=== PATIENT | female | born 1960 | race Caucasian/White ===

== ENCOUNTER 2022-11-15 07:04 | Inpatient (IN) | payer OTHER, SELFPAY ==
[2022-11-15] VITALS (19 sets, daily range): BP systolic 94–133; BP diastolic 50–78; PULSE 101–139; RESP 18–28; TEMP 36.8–37; O2SAT 96–100; BMI 23.1
--- NOTE | ~2022-11-15 | CT_ITS ---
Clinical Indication: Pulmonary nodule CT Scan of the Chest with Contrast: Technique: Contiguous sections were acquired throughout the chest after intravenous administration of 75 cc of Omnipaque 350. Dose reduction technique was used on this scan by utilizing automated exposu re control and iterative reconstruction technique. The dose-length product (DLP) was 363.74 mGy-cm. Findings: There is no evidence of any significant mediastinal, hilar or axillary lymphadenopathy. Mediastinal s oft tissues and vascular structures are unremarkable. There is no evidence of pleural or pericardial effusion. There is a 1.7 x 1.1 cm somewhat lobulated, nodular consolidation in the peripheral left upper lobe ( axial image 65). Right lung is clear. Images through the upper abdomen reveal markedly distended stomach. Impression: 1.7 x 1.1 cm nodular consolidation in the peripheral left upper lobe, as detailed above. Diagnostic c onsiderations include infectious process versus neoplasm. Correlate with relevant clinical symptoms. Consider short-term follow-up exam after interval therapy versus attempted tissue sampling. Reviewed, dictated and finalized at location . Impression: 1.7 x 1.1 cm nodular consolidation in the peripheral left upper lobe, as detail ed above. Diagnostic considerations include infectious process versus neoplasm. Correlate with relevant clinical symptoms. Consider short-term follow-up exam after interval therapy versus attempted tissue sampling.
--- NOTE | ~2022-11-15 | XR_ITS ---
Portable chest x-ray Comparison: None Clinical History: Shortness of breath Findings: Questionable 7 mm pulmonary nodule at the lateral left midlung. Right lung clear. Cardiom ediastinal silhouette is stable. Bones and soft tissues are unremarkable. Impression: Possible 7 mm left pulmonary nodule. CT chest recommended to confirm or exclude. Reviewed, dictated and finalized at [facility]. Impression: Possible 7 mm left pulmonary nodule. CT chest recommended to confirm or exclude .
--- NOTE | 2022-11-15 07:16 | ECG_ITS ---
Measurements Intervals [place] Rate: 123 P: 79 IN: 172 QRS: 51 QRSD: 90 T: 68 QT: 314 QTc: 451 Interpretive Statements SINUS TACHYCARDIA POSSIBLE RIGHT VENTRICULAR CONDUCTION DELAY [RSR (QR) IN V1/V2] NO PREVIOUS ECG AVAILABLE FOR COMPARISON Electronically Signed On 11-15-2022 14:25:21 CDT by Sharon Gonzalez M.D.
[2022-11-15 07:20] LABS: Glucose Point of Care > 500 mg/dl (65-105)
[2022-11-15] MEDS: ONDANSETRON INJ 4 MG/2 ML VIAL IV PUSH ×2 (07:20→23:44)
[2022-11-15] MEDS: SODIUM CHLORIDE 0.9% IV 3,000 ML 999 ML IV CONT (07:20)
--- NOTE | 2022-11-15 07:21 | ED.RECABL ---
HPI - Recheck/Abnormal Lab/Rx General Chief Complaint: Recheck/Abnormal Lab/Rx Stated Complaint: high blood sugar History of Present Illness HPI narrative: This is a 62-year-old female, with history of diabetes, brought in by EMS for nausea vomiting and high blood sugar. The patient states her medications were recently changed to Ozempic. 3 days ago, she received a flu vaccination annually thereafter developed nausea, vomiting, generalized abdominal cramping and general malaise. She states she has vomited multiple times without blood and feels dehydrated. Related Data Home Medications Medication Instructions Recorded Confirmed aspirin 81 mg tablet 81 mg PO DAILY 11/15/22 11/15/22 atorvastatin 20 mg tablet 20 mg PO HS 11/15/22 11/15/22 cholecalciferol (vitamin D3) 100 100 mcg PO DAILY 11/15/22 11/15/22 mcg (4,000 unit) tablet insulin aspart U-100 100 unit/mL See Protocol subcut BIDWM 11/15/22 11/15/22 subcutaneous solution (Novolog U-100 Insulin aspart) levothyroxine 112 mcg tablet 112 mcg PO QAM 11/15/22 11/15/22 (Synthroid) losartan 25 mg tablet 25 mg PO DAILY 11/15/22 11/15/22 metformin 1,000 mg tablet 1,000 mg PO BID 11/15/22 11/15/22 semaglutide 0.25 mg or 0.5 mg (2 0.5 mg subcut WEEKLY 11/15/22 11/15/22 mg/3 mL) subcutaneous pen injector (Ozempic) Allergies Allergy/AdvReac Type Severity Reaction Status Date / Time hydrocodone Allergy Nausea Verified 11/15/22 07:14 Sulfa (Sulfonamide Allergy Rash Verified 11/15/22 07:13 Antibiotics) Review of Systems Review of Systems: CONSTITUTIONAL: Denies fever, chills, or sweats. CARDIOVASCULAR: Denies chest pain, palpitations, or edema. RESPIRATORY: Denies cough or dyspnea. GASTROINTESTINAL: Generalized abdominal cramping, nausea and nonbloody vomiting denies diarrhea. GENITOURINARY: Denies dysuria or hematuria. SKIN: Denies rash or itching. MUSCULOSKELETAL: Denies back pain, joint pain, or myalgia. NEUROLOGIC: Lightheadedness denies headache, numbness, or weakness. PSYCHIATRIC: Denies anxiety or depression. PMFSH Past Medical History Medical History Diabetes mellitus Surgical History Surgical History No significant past surgical history Social History Social History Smoking status: Never smoker Alcohol intake: never Substance use: current Substance use type: marijuana Lack of Transportation: No Lack of Food: Never True Current Housing: I Have Housing Concerned About Future Housing: No Difficulty Paying Gas/Electric Bills: No Difficulty Paying for Meds: No Currently Unemployed: No Education: Decline to Answer Difficulty w/ Childcare or Family Care: No Spiritual care concerns: No Exam Narrative: GENERAL: Well-developed, well-nourished, appears uncomfortable HEAD: Normocephalic, atraumatic. EYES: PERRLA and EOMI. ENT: Nares clear, no rhinorrhea or epistaxis. Mucous membranes dry. Oropharynx without tonsillar hypertrophy exudate or other lesions. CHEST: Tachypneic. Clear to auscultation. No respiratory distress. No wheezes rales or rhonchi HEART: Tachycardic with regular rhythm. No murmur heard. Normal peripheral pulses. ABDOMEN: Soft, diffuse tenderness to palpation, without rebound or guarding, nondistended, normal active bowel sounds. EXTREMITIES: Normal range of motion. No edema. SKIN: Warm, dry, no rash. NEURO: Alert and oriented x3. Moving all 4 limbs purposefully. PSYCH: Normal mood and affect. Course Course Emergency Course: 07:30 - Exam is consistent with DKA. Will resuscitate with IV fluids, begin broad-spectrum antibiotics and plan for insulin drip once potassium is known. 08:04 - pH 6.88 with bicarb of 2. Potassium 4.8. Will start patient on insulin drip and begin bicarb with potassium. 09:07 - I discussed the pa
[2022-11-15 07:37] LABS: Basophils Absolute Auto 0.1 K/mm3 (0.0-0.1); Basophils Percent Auto 0.6 % (0.2-1.2); Hematocrit 49.1 % (37.0-47.0); Hemoglobin 14.6 g/dL (12.0-15.0); Immature Granulocyte Absolute 0.17 K/mm3 (0.00-0.031); Immature Granulocyte Percent A 0.7 % (0-0.5); Lymphocytes Absolute Auto 2.36 K/mm3 (0.9-3.2); Mean Corpuscular HGB Conc 29.7 g/dl (32-36); Mean Corpuscular Volume 107.7 fl (80-100); Mean Platelet Volume 10.5 fl (7.4-10.4); Monocytes Absolute Auto 1.9 K/mm3 (0.1-0.6); Monocytes Percent Auto 8.2 % (2.6-8.5); Neutrophils Percent Auto 80.5 % (45.5-73.1); Platelet Count Result 390 k/mm3 (150-375); Red Blood Count 4.56 M/mm3 (4.2-5.4); Red Cell Distribution Width 12.8 % (11.5-14.5); White Blood Count 23.6 K/mm3 (4.5-10.0)
[2022-11-15 07:47] LABS: Fractional Inspired Oxygen 21 %; HCO3 VBG 2.2 mEq/l (24.0-30.0); PO2 VBG 78.8 mmHg (35.0-45.0)
[2022-11-15 07:48] LABS: Device ROOM AIR; PCO2 VBG 12.2 mmHg (42.0-48.0); pH VBG 6.881 (7.300-7.400)
[2022-11-15 07:59] LABS: Alanine Aminotransferase 26 U/L (6-35); Albumin Level 5.3 g/dL (3.5-5.1); Alkaline Phosphatase 133 U/L (38-126); Aspartate Amino Transferase 27 U/L (14-36); Bilirubin,Total 0.5 mg/dL (0.2-1.3); Blood Urea Nitrogen 20 mg/dL (7-17); Carbon Dioxide < 5 mmol/L (22-30); Chloride 98 mmol/L (98-107); Estimated CRCL calculation 30 ml/min; Estimated Glomerular Filt Rate 33; Glucose 683 mg/dL (65-110); Magnesium 2.4 mg/dL (1.6-2.3); Phosphorus 8.5 mg/dL (2.5-4.5); Potassium 4.8 mmol/L (3.4-5.0); Sodium 137 mmol/L (137-145)
[2022-11-15 08:00] LABS: Lactic Acid Reflex 7.6 mmol/L (0.7-2.0)
[2022-11-15 08:03] LABS: Troponin I < 0.012 ng/mL (0.000-0.034)
[2022-11-15] MEDS: INSULIN HUMAN REGULAR (*BKC) 100 UNITS/ML 9 UNITS IV PUSH (08:13)
[2022-11-15] MEDS: INSULIN HUMAN REGULAR (*BKC) 100 UNITS in SODIUM CHLORIDE 0.9% IV 99 ML 6 UNITS IV CONT (08:19)
[2022-11-15 08:25] LABS: Beta-Hydroxybutyrate/Acetoacetate 9.37 mmol/L (0.02-0.27)
[2022-11-15 08:32] LABS: Band Neutrophils Percent 12 % (0-6); Basophils Absolute Manual 0.23 K/mm3 (0.0-0.1); Basophils Percent Manual 1 % (0-1); Influenza A QL RT-PCR Negative (Negative); Influenza B QL RT-PCR Negative (Negative); Monocytes Absolute Manual 1.88 K/mm3 (0.1-0.90); Monocytes Percent Manual 8 % (3-9); Neutrophils Absolute Manual 18.17 K/mm3 (1.7-7.2); Neutrophils Percent Manual 65 % (46-73); Platelet Estimate Adequate (Adequate); SARS-CoV-2 RNA PCR Negative (Negative); Total Cells Counted 100
[2022-11-15 08:34] LABS: Schistocytes None Seen (NORMAL)
[2022-11-15 09:32] LABS: Appearance Urine Clear (Clear); Bacteria Urine None Seen /hpf; Bilirubin Urine Negative (Negative); Blood Urine 1+ (Negative); Color Urine Yellow (Yellow); Glucose Urine UA 3+ mg/dL (Negative); Ketones Urine 4+ mg/dL (Negative); Leukocyte Esterase Ur Negative LEU/UL (Negative); Nitrate Urine Negative (Negative); Protein Urine 1+ mg/dL (Negative); RBC Urine 0-2 /hpf (0-2); Specific Grav Ur 1.022 (1.001-1.035); Squamous Epithelial Cell Urine None seen /hpf (Few); Urobilinogen Urine 0.2 mg/dL (<2.0); WBC Urine 0-5 /hpf
[2022-11-15 09:46] LABS: Add Urine Microscopic? YES
--- NOTE | 2022-11-15 09:55 | ADMGEN ---
This patient, Hailey Anna, was admitted to Intensive Care Unit-9 at 0955. Patient/family oriented to hospital policies and general routines including ID bracelet, bed and alarms, visiting hours, pain management, procedures, bathroom and other care routines, personal items, smoking policy, room service/diet, and visiting hours. Information on how to activate the Rapid Response Team has been discussed. Patient/Family are encouraged to report perceived risks to care and to ask questions if they do not understand what they are told or what they should do.
[2022-11-15 10:06] LABS: Glucose Point of Care 357 mg/dl (65-105)
[2022-11-15 10:32] LABS: Reflex Lactic Acid Yes or No Add Lactic
[2022-11-15 10:54] LABS: Glucose Point of Care 275 mg/dl (65-105)
[2022-11-15] MEDS: SODIUM BICARBONATE 8.4% 50 MEQ/50 ML SYRINGE IV PUSH (10:59)
[2022-11-15] MEDS: SODIUM CHLORIDE 0.9% IV 1,000 ML 150 ML IV CONT ×2 (10:59→18:58)
--- NOTE | 2022-11-15 11:14 | WPDCNINT ---
Assessment and Plan Assessment and plan (1) Diabetic ketoacidosis: Code(s): E11.10 - Type 2 diabetes mellitus with ketoacidosis without coma Status: Acute Assessment and Plan: Patient presented with elevated, elevated beta hydroxybutyrate, urine was positive for ketones and glucose. CO2 was significantly decreased, anion gap metabolic acidosis likely secondary to diabetic ketoacidosis -patient was given 3 L IV fluids in the ER, started on insulin infusion -VBG showed pH of 6.7, patient was started on bicarb infusion -1 amp of bicarb given the ICU and an additional IV fluid bolus of LR was given in the ICU too -continue insulin infusion per DKA protocol, labs will also be obtained per DKA protocol -will check HbA1c -recheck lactic acid -will transition to long-acting insulin and sliding scale insulin once the anion gap has closed -Off note patient does take Ozempic, metformin and NovoLog at home (2) Hypothyroidism: Code(s): E03.9 - Hypothyroidism, unspecified Status: Acute Assessment and Plan: Continue Synthroid (3) Nausea and vomiting: Code(s): R11.2 - Nausea with vomiting, unspecified Status: Acute Assessment and Plan: Nausea and vomiting is improved (4) Hyperlipidemia: Code(s): E78.5 - Hyperlipidemia, unspecified Status: Acute Assessment and Plan: Continue statin Plan DVT prophylaxis: Lovenox Stress ulcer prophylaxis: Not indicated Nutrition: NPO except ice chips for now Code Status: Full code Critical Care Time Spent: 48 minutes Due to a high probability of clinically significant, life threatening deterioration, the patient required my highest level of preparedness to intervene emergently and I personally spent this critical care time directly and personally managing the patient. This critical care time included obtaining a history; examining the patient; pulse oximetry; ordering and review of studies; arranging urgent treatment with development of a management plan; evaluation of patient's response to treatment; frequent reassessment; and discussions with other providers. It was exclusive of separately billable procedures and treating other patients and teaching time. Please see Assessment and Plan section and the rest of the note for further information on patient assessment and treatment This dictation may have been done utilizing a voice recognition system. Attempts have been made to correct errors. However, there may be uncorrected grammatical, spelling, and recognitions errors present. 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 Patient states that she has had 12 episodes of vomiting overnight. She had recently had diabetic medications please change to Ozempic. She also had received a flu vaccination on 11/12/2022 after which she developed nausea, vomiting, general abdominal camping and malaise. In the ER she was found to be in diabetic ketoacidosis, elevated WBC count, VBG with a pH of 6.7 blood sugars of 683, CO2 of < 5, elevated beta hydroxybutyrate, lactic acid of 7.6. UA was positive for 1+ protein, 3+ glucose. Patient was negative for influenza A and B and SARS-CoV-2 PCR. WBC count was elevated 23.6. Chest x-ray showed possible 7 mm left pulmonary nodule. CT scan of the chest with contrast showed 1.7 x 1.1 cm nodular consolidation in the peripheral left upper lobe, as detailed above. Diagnostic considerations include infectious process versus neoplasm. Correlate with relevant clinical symptoms. Consider short-term follow-up exam after interval therapy versus attempted tissue sampling Patient was given 3 L IV fluid bolus in the ER, started on bicarb infusion due to pH of 6.7. Patient will start in
[2022-11-15 11:47] LABS: Lactic Acid 3.5 mmol/L (0.7-2.0)
[2022-11-15] MEDS: LACTATED RINGERS 1,000 ML 999 ML IV CONT (11:49)
[2022-11-15 11:59] LABS: Glucose Point of Care 231 mg/dl (65-105)
[2022-11-15] MEDS: KCL 20 MEQ/D5/0.45% SOD CHL 1,000 ML 150 ML IV CONT ×2 (12:02→17:55)
[2022-11-15 12:57] LABS: Glucose Point of Care 188 mg/dl (65-105)
--- NOTE | 2022-11-15 13:09 | PM.IMHP ---
H&P: HPI History of Present Illness Date/Time: 11/15/22 13:45 Chief Complaint: Nausea, vomiting, and high glucose. Narrative: This is a 62-year-old female with type 2 diabetes mellitus, hypertension, and hyperlipidemia who presented to the emergency department for evaluation of nausea, vomiting, and high glucose. The patient provides the following history. She got a flu shot on Friday and couple of days thereafter she started to feel unwell with symptoms to in sinus congestion, sore throat, subjective fever, nausea, and vomiting. She has not been able to hold down much in the way of food and is getting progressively more weak and reports feeling lightheaded and dizzy upon standing. She complains of pretty significant heartburn at this time as well which is unusual for her. This morning she was short of breath but that seems to have improved. The last 2 days her glucose has continued to rise and today was over 600 and she came in for evaluation. It is unusual for her glucose to be that high and in fact she was recently taken off of several of her diabetic medications. She was apparently started on Ozempic in April and she has lost 22 lb however she reports that she gets nauseated frequently and does have occasional emesis due to the drug. In the ED: She was afebrile on arrival. Blood pressures have been stable. Heart rate is consistently in the 120s to 130s, sinus tachycardia. Labs were significant for a WBC count of 23.6, MCV 107.7, platelet 390, sodium 137, potassium 4.8, chloride 98, carbon dioxide less than 5, BUN 20, creatinine 1.60, glucose 683, lactic acid 7.6, beta hydroxybutyrate 9.37. Chest x-ray showed a possible 7 mm left pulmonary nodule and a subsequent CT of the chest showed a 1.7 x 1 point cm nodular consolidation in the peripheral left upper lobe with a differential diagnosis to include infectious process versus neoplasm. She was aggressively hydrated and has been started on insulin drip and is admitted to the ICU. Review of Systems Review of Systems: Twelve systems were reviewed. No documented fever. She has a mild headache. No chest pain. She felt a bit short of breath this morning. Cough has been nonproductive. No diarrhea. She denies melena and hematochezia. Slight dysuria following straight catheterization in the ED. except as documented, all other systems were reviewed and are negative. PMFSH Past Medical History Medical History (Updated 11/15/22 @ 21:24 by Alona Sanders PA-C) Hyperlipidemia Hypothyroidism Type 2 diabetes mellitus Surgical History Surgical History No significant past surgical history Family History Family History (Updated 11/15/22 @ 21:21 by Alona Sandres PA-C) Other Diabetes mellitus Social History Social History (Updated 11/15/22 @ 21:22 by Alona Sanders PA-C) Social History: Surrogate medical decision maker: Nancy Anna, daughter. Code status: Full code. Smoking status: Never smoker Alcohol intake: never Substance use: current Substance use type: marijuana Lack of Transportation: No Lack of Food: Never True Current Housing: I Have Housing Concerned About Future Housing: No Difficulty Paying Gas/Electric Bills: No Difficulty Paying for Meds: No Currently Unemployed: No Education: Decline to Answer Difficulty w/ Childcare or Family Care: No Spiritual care concerns: No Meds Home Medications and Allergies Home Medications Medication Instructions Recorded Confirmed Type aspirin 81 mg tablet 81 mg PO DAILY 11/15/22 11/15/22 History atorvastatin 20 mg tablet 20 mg PO HS 11/15/22 11/15/22 History cholecalciferol (vitamin D3) 100 100 mcg PO DAILY 11/15/22 11/15/22 History mcg (4,000 unit) tablet insulin aspart U-100 100 unit/mL See Protocol subcut BIDWM 11/15/22 11/15/22 History subcutaneous solution (Novolog U-100 Insulin aspart) levothyroxine 112 mcg tablet 1
[2022-11-15 14:05] LABS: Glucose Point of Care 184 mg/dl (65-105)
[2022-11-15 14:36] LABS: Anion Gap 17 mmol/L (8-16); Blood Urea Nitrogen 13 mg/dL (7-17); Calcium 7.8 mg/dL (8.4-10.2); Carbon Dioxide 10 mmol/L (22-30); Chloride 109 mmol/L (98-107); Estimated CRCL calculation 62 ml/min; Estimated Glomerular Filt Rate > 60; Glucose 186 mg/dL (65-110); Potassium 4.1 mmol/L (3.4-5.0); Sodium 136 mmol/L (137-145)
[2022-11-15 14:57] LABS: Glucose Point of Care 213 mg/dl (65-105)
[2022-11-15 15:53] LABS: Glucose Point of Care 215 mg/dl (65-105)
[2022-11-15 17:05] LABS: Glucose Point of Care 271 mg/dl (65-105)
[2022-11-15 17:52] LABS: Glucose Point of Care 247 mg/dl (65-105)
[2022-11-15 18:55] LABS: Glucose Point of Care 275 mg/dl (65-105)
[2022-11-15 19:51] LABS: Potassium 4.2 mmol/L (3.4-5.0)
[2022-11-15] MEDS: FAMOTIDINE 20 MG/2 ML VIAL IV PUSH (19:52)
[2022-11-15 19:58] LABS: Anion Gap 14 mmol/L (8-16); Blood Urea Nitrogen 11 mg/dL (7-17); Carbon Dioxide 15 mmol/L (22-30); Chloride 107 mmol/L (98-107); Estimated CRCL calculation 62 ml/min; Estimated Glomerular Filt Rate > 60; Glucose 243 mg/dL (65-110); Sodium 136 mmol/L (137-145)
[2022-11-15] MEDS: ATORVASTATIN 20 MG TABLET PO (20:00)
[2022-11-15 20:02] LABS: Glucose Point of Care 221 mg/dl (65-105)
[2022-11-15 21:02] LABS: Glucose Point of Care 216 mg/dl (65-105)
[2022-11-15 23:00] LABS: Hemoglobin A1C 8.8 % (<5.7)
[2022-11-15 23:11] LABS: Glucose Point of Care 237 mg/dl (65-105)
[2022-11-15] MEDS: AZITHROMYCIN 500 MG/NS 250 ML 500 MG/250 ML BAG 250 MG IVPB (23:11)
[2022-11-15 23:17] LABS: Glucose Point of Care 251 mg/dl (65-105)
[2022-11-16] VITALS (13 sets, daily range): BP systolic 108–146; BP diastolic 62–75; PULSE 74–95; RESP 14–23; TEMP 36.2–37.1; O2SAT 96–100
[2022-11-16 00:17] LABS: Glucose Point of Care 195 mg/dl (65-105)
[2022-11-16 00:46] LABS: Anion Gap 12 mmol/L (8-16); Blood Urea Nitrogen 9 mg/dL (7-17); CRP 4.9 mg/dL (<1.0); Calcium 7.7 mg/dL (8.4-10.2); Carbon Dioxide 12 mmol/L (22-30); Chloride 109 mmol/L (98-107); Estimated CRCL calculation 71 ml/min; Estimated Glomerular Filt Rate > 60; Glucose 198 mg/dL (65-110); Potassium 3.9 mmol/L (3.4-5.0); Sodium 133 mmol/L (137-145)
[2022-11-16 00:59] LABS: Procalcitonin 3.2 ng/mL
[2022-11-16 01:13] LABS: Glucose Point of Care 214 mg/dl (65-105)
[2022-11-16 02:12] LABS: Glucose Point of Care 226 mg/dl (65-105)
[2022-11-16] MEDS: KCL 20 MEQ/D5/0.45% SOD CHL 1,000 ML 150 ML IV CONT ×2 (02:31→10:18)
[2022-11-16 03:26] LABS: Glucose Point of Care 246 mg/dl (65-105)
[2022-11-16 04:15] LABS: Basophils Percent Auto 0.3 % (0.2-1.2); Eosinophils Percent Auto 0.2 % (0-4.4); Hematocrit 36.5 % (37.0-47.0); Hemoglobin 12.4 g/dL (12.0-15.0); Immature Granulocyte Absolute 0.03 K/mm3 (0.00-0.031); Immature Granulocyte Percent A 0.3 % (0-0.5); Lymphocytes Absolute Auto 1.48 K/mm3 (0.9-3.2); Lymphocytes Percent Auto 13.7 % (18.3-44.2); Mean Corpuscular Hemoglobin 31.9 pg (26-34); Mean Corpuscular Volume 93.8 fl (80-100); Mean Platelet Volume 9.6 fl (7.4-10.4); Monocytes Absolute Auto 0.8 K/mm3 (0.1-0.6); Monocytes Percent Auto 7.6 % (2.6-8.5); Neutrophils Absolute Auto 8.5 K/mm3 (1.3-6.7); Neutrophils Percent Auto 77.9 % (45.5-73.1); Platelet Count Result 235 k/mm3 (150-375); Red Blood Count 3.89 M/mm3 (4.2-5.4); White Blood Count 10.8 K/mm3 (4.5-10.0)
[2022-11-16 04:24] LABS: Glucose Point of Care 268 mg/dl (65-105)
[2022-11-16 04:25] LABS: Lactic Acid Reflex 1.1 mmol/L (0.7-2.0)
[2022-11-16 04:28] LABS: Alanine Aminotransferase 23 U/L (6-35); Albumin Level 3.6 g/dL (3.5-5.1); Alkaline Phosphatase 63 U/L (38-126); Anion Gap 9 mmol/L (8-16); Aspartate Amino Transferase 33 U/L (14-36); Bilirubin,Total 0.5 mg/dL (0.2-1.3); Blood Urea Nitrogen 8 mg/dL (7-17); Calcium 7.9 mg/dL (8.4-10.2); Carbon Dioxide 17 mmol/L (22-30); Chloride 107 mmol/L (98-107); Estimated CRCL calculation 71 ml/min; Estimated Glomerular Filt Rate > 60; Glucose 240 mg/dL (65-110); Lipase 59 U/L (23-300); Magnesium 1.7 mg/dL (1.6-2.3); Phosphorus 1.6 mg/dL (2.5-4.5); Potassium 4.2 mmol/L (3.4-5.0); Sodium 133 mmol/L (137-145)
[2022-11-16 05:14] LABS: Glucose Point of Care 234 mg/dl (65-105)
[2022-11-16 05:50] LABS: Free T4 Free Thyroxine Reflex 1.56 ng/dL (0.78-2.19)
[2022-11-16] MEDS: LEVOTHYROXINE SODIUM 112 MCG TABLET PO (06:07)
[2022-11-16 06:12] LABS: Glucose Point of Care 235 mg/dl (65-105)
[2022-11-16 07:04] LABS: Glucose Point of Care 250 mg/dl (65-105)
[2022-11-16 07:55] LABS: Total Triiodothyronine (T3) 0.58 NG/ML (0.97-1.69)
[2022-11-16] MEDS: CHOLECALCIFEROL 1,000 UNITS TABLET 4000 UNITS PO (08:34)
[2022-11-16] MEDS: ENOXAPARIN 40 MG/0.4 ML SYRINGE SUB-Q (08:34)
[2022-11-16] MEDS: ASPIRIN 81 MG CHEWABLE TABLET PO (08:34)
[2022-11-16] MEDS: FAMOTIDINE 20 MG/2 ML VIAL IV PUSH ×2 (08:34→20:31)
[2022-11-16 08:52] LABS: Glucose Point of Care 226 mg/dl (65-105)
[2022-11-16 08:59] LABS: Anion Gap 9 mmol/L (8-16); Blood Urea Nitrogen 6 mg/dL (7-17); Calcium 7.9 mg/dL (8.4-10.2); Carbon Dioxide 18 mmol/L (22-30); Chloride 106 mmol/L (98-107); Estimated CRCL calculation 84 ml/min; Estimated Glomerular Filt Rate > 60; Glucose 230 mg/dL (65-110); Potassium 3.8 mmol/L (3.4-5.0); Sodium 133 mmol/L (137-145)
[2022-11-16] MEDS: SODIUM PHOSPHATE 20 MM in DEXTROSE 5% IN WATER 250 ML 50 MM IVPB (09:37)
[2022-11-16 09:39] LABS: Glucose Point of Care 240 mg/dl (65-105)
[2022-11-16 10:22] LABS: Glucose Point of Care 260 mg/dl (65-105)
[2022-11-16] MEDS: INSULIN GLARGINE (*BKC) 100 UNITS/ML 30 UNITS SUB-Q (11:24)
[2022-11-16] MEDS: INSULIN ASPART (*BKC) 100 UNITS/ML SUB-Q ×2 (11:38→17:16)
[2022-11-16 11:43] LABS: Glucose Point of Care 241 mg/dl (65-105)
[2022-11-16 12:34] LABS: Glucose Point of Care 245 mg/dl (65-105)
--- NOTE | 2022-11-16 13:09 | PM.IMPN ---
Progress Note: A&P Assessment and Plan (1) Diabetic ketoacidosis: Qualifiers: Diabetes mellitus complication detail: without coma Diabetes mellitus type: type 2 Qualified Code(s): E11.10 - Type 2 diabetes mellitus with ketoacidosis without coma Code(s): E11.10 - Type 2 diabetes mellitus with ketoacidosis without coma Status: Acute (2) Lactic acidosis: Code(s): E87.20 - Acidosis, unspecified Status: Acute (3) Nodule of left lung: Code(s): R91.1 - Solitary pulmonary nodule Status: Acute (4) Hypothyroidism: Code(s): E03.9 - Hypothyroidism, unspecified Status: Acute Plan 62 oral female with type 2 diabetes hypertension hyperlipidemia presented for nausea vomiting and elevated blood sugar level. She got a flu shot on Friday she and couple days later she started feeling unwell with sinus congestion sore throat subjective fever nausea vomiting he has not been able to hold her food down and getting progressively weak lightheaded and dizzy upon standing. The last 2 days of blood sugar has continued to rise and was over 600 when she came in for evaluation. She has been recently started on Ozempic in monitor lost 22 lb. In the ER evaluation her heart rate was in 120s to 130s sinus tachycardia at WBC count of 23,000 carbon dioxide less than 5 creatinine 1.6 blood to was a 6 and 83 lactic acid of 7.6 with beta hydroxybutyrate of 9.37. Chest x-ray showed possible 7 mm left pulmonary nodule. CT chest was done which showed 1.7 x 1 cm nodular consolidation in the peripheral left upper lobe differential diagnosis include infectious process versus neoplasm. She was diagnosed with DKA in 1 was started on insulin drip and IV resuscitation.. DKA protocol was initiated. Repeat lactic acid improved with IV hydration has normalized since then. Metformin is on hold and has been started on empiric antibiotics. Blood cultures remains negative. Leukocytosis improved. Lantus 30 units started this a.m. hemoglobin A1c came back at 9 Anion gap closed has been transition to long-acting insulin with sliding scale insulin. 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 She has also been on Ozempic 0.5 mg weekly since past 6 months. Off [place] due to UTI. Does take metformin Hypothyroidism on Synthroid Hyperlipidemia on statin Code status full code DVT prophylaxis Lovenox. Subjective Date/time seen: 11/16/22 13:09 Interval history: No overnight events vitals stable labs were reviewed off insulin drip since this afternoon. Feeling better ate a meal discussed with family at bedside Review of Systems Review of Systems: All systems reviewed & are unremarkable except as noted in HPI and below Exam Narrative: General: Pleasant female in no acute distress HEENT:? Pupils equal and reactive, sclerae is clear, dry oral mucosa Neck:? Supple Respiratory:? Clear to auscultation bilaterally, no wheezing, adequate air entry Cardiac:? S1-S2 normal, sinus tachycardia Abdomen:? Soft, nontender, nondistended, normoactive bowel sounds Extremities:? Palpable pedal pulses, no edema Neuro:? Patient is awake, alert, oriented, nonfocal, able to answer questions appropriately and follows simple commands in all extremities Skin:? Warm and dry Psych:? Normal mentation and affect Objective Data Vital Signs Vital Signs: Vital Signs - 24 hr 11/15/22 13:52 11/15/22 13:56 11/15/22 15:32 Temperature 98.4 F Pulse Rate 122 H 120 H 121 H Respiratory Rate 20 27 H Blood Pressure 107/62 Pulse Oximetry 99 100 Oxygen Delivery Room Air 11/15/22 16:00 11/15/22 16:00 11/15/22 18:00 Temperature Pulse Rate 116 H 113 H 111 H Respiratory Rate 18 Blood Pressure 133/56 L Pulse Oximetry 98 Oxygen Delivery 11/15/22 18:00 11/15/22 20:00 11/15/22 20:00 Temperature 98.6 F Pulse Rate 109 H 113 H Respirato
--- NOTE | 2022-11-16 13:46 | WPDINTPN ---
Progress Note: A&P Assessment and Plan (1) Diabetic ketoacidosis: Qualifiers: Diabetes mellitus complication detail: without coma Diabetes mellitus type: type 2 Qualified Code(s): E11.10 - Type 2 diabetes mellitus with ketoacidosis without coma Code(s): E11.10 - Type 2 diabetes mellitus with ketoacidosis without coma Status: Acute Assessment and Plan: Patient presented with elevated, elevated beta hydroxybutyrate, urine was positive for ketones and glucose. CO2 was significantly decreased, anion gap metabolic acidosis likely secondary to diabetic ketoacidosis -patient was given 3 L IV fluids in the ER, started on insulin infusion -VBG showed pH of 6.7, patient was started on bicarb infusion -1 amp of bicarb given the ICU and an additional IV fluid bolus of LR was given in the ICU too -continue insulin infusion per DKA protocol, labs will also be obtained per DKA protocol -hemoglobin A1c this admission is 9.0 -lactic acid has normalized -anion gap is closed, transition to Lantus and sliding scale insulin, will discontinue insulin infusion per DKA protocol -diabetic diet -Off note patient does take Ozempic, metformin and NovoLog at home (2) Hypothyroidism: Code(s): E03.9 - Hypothyroidism, unspecified Status: Acute Assessment and Plan: Continue Synthroid -TSH is low -T3 is low -T4 was within normal (3) Nausea and vomiting: Code(s): R11.2 - Nausea with vomiting, unspecified Status: Acute Assessment and Plan: Nausea and vomiting is improved (4) Hyperlipidemia: Code(s): E78.5 - Hyperlipidemia, unspecified Status: Acute Assessment and Plan: Continue statin Plan DVT prophylaxis: Lovenox Stress ulcer prophylaxis: Not indicated Nutrition: Will start diabetic diet Code Status: Full code Critical Care Time Spent: 32 minutes May transfer out of the ICU Due to a high probability of clinically significant, life threatening deterioration, the patient required my highest level of preparedness to intervene emergently and I personally spent this critical care time directly and personally managing the patient. This critical care time included obtaining a history; examining the patient; pulse oximetry; ordering and review of studies; arranging urgent treatment with development of a management plan; evaluation of patient's response to treatment; frequent reassessment; and discussions with other providers. It was exclusive of separately billable procedures and treating other patients and teaching time. Please see Assessment and Plan section and the rest of the note for further information on patient assessment and treatment This dictation may have been done utilizing a voice recognition system. Attempts have been made to correct errors. However, there may be uncorrected grammatical, spelling, and recognitions errors present. Subjective Date/time seen: 11/16/22 13:46 Interval history: Reason for consult: Diabetic ketoacidosis, nausea, vomiting 11/16/2022: Patient seen and examined the ICU, is awake, alert, oriented x3. Denies any nausea, vomiting, abdominal pain. States she feels much better. Denies being thirsty or dehydrated this morning. Patient is hemodynamically stable, adequate urine output, afebrile. Remains on insulin infusion Review of Systems Review of Systems: All systems reviewed & are unremarkable except as noted in HPI and below Exam Narrative: General: Pleasant female in no acute distress HEENT:? Pupils equal and reactive, sclerae is clear, dry oral mucosa Neck:? Supple Respiratory:? Clear to auscultation bilaterally, no wheezing, adequate air entry Cardiac:? S1-S2 normal, sinus tachycardia Abdomen:? Soft, nontender, nondistended, normoactive bowel sounds Extremities:? Palpable pedal pulses, no edema Neuro:? Patient is awake, alert, oriented, nonfocal, able to answer questions appropriately and follows simple commands in
[2022-11-16 14:23] LABS: Glucose Point of Care 166 mg/dl (65-105)
--- NOTE | 2022-11-16 16:19 | PC.NURSE ---
Report given to Didi RN with [address] [place] [address]. Patient to move to room 241.
[2022-11-16 17:13] LABS: Glucose Point of Care 160 mg/dl (65-105)
--- NOTE | 2022-11-16 18:42 | PC.NURSE ---
pt oriented to room 241 from ICU 9. pt resting eating dinner and shown how to use call button.
[2022-11-16] MEDS: AZITHROMYCIN 500 MG/NS 250 ML 500 MG/250 ML BAG 250 MG IVPB (20:30)
[2022-11-16] MEDS: ATORVASTATIN 20 MG TABLET PO (20:31)
[2022-11-16 20:43] LABS: Glucose Point of Care 173 mg/dl (65-105)
[2022-11-17 03:45] LABS: Glucose Point of Care 142 mg/dl (65-105)
[2022-11-17 05:42] LABS: Basophils Percent Auto 0.6 % (0.2-1.2); Eosinophils Absolute Auto 0.1 K/mm3 (0-0.3); Eosinophils Percent Auto 0.8 % (0-4.4); Hematocrit 33.8 % (37.0-47.0); Hemoglobin 11.5 g/dL (12.0-15.0); Immature Granulocyte Absolute 0.02 K/mm3 (0.00-0.031); Immature Granulocyte Percent A 0.3 % (0-0.5); Lymphocytes Absolute Auto 1.63 K/mm3 (0.9-3.2); Mean Corpuscular Hemoglobin 31.5 pg (26-34); Mean Corpuscular Volume 92.6 fl (80-100); Monocytes Absolute Auto 0.5 K/mm3 (0.1-0.6); Monocytes Percent Auto 7.4 % (2.6-8.5); Neutrophils Absolute Auto 4.3 K/mm3 (1.3-6.7); Neutrophils Percent Auto 65.9 % (45.5-73.1); Platelet Count Result 190 k/mm3 (150-375); Red Blood Count 3.65 M/mm3 (4.2-5.4); White Blood Count 6.5 K/mm3 (4.5-10.0)
[2022-11-17 06:02] LABS: Alanine Aminotransferase 26 U/L (6-35); Albumin Level 3.1 g/dL (3.5-5.1); Alkaline Phosphatase 55 U/L (38-126); Anion Gap 8 mmol/L (8-16); Aspartate Amino Transferase 34 U/L (14-36); Bilirubin,Total 0.5 mg/dL (0.2-1.3); Blood Urea Nitrogen 3 mg/dL (7-17); Calcium 8.2 mg/dL (8.4-10.2); Carbon Dioxide 21 mmol/L (22-30); Chloride 107 mmol/L (98-107); Estimated CRCL calculation 84 ml/min; Estimated Glomerular Filt Rate > 60; Glucose 156 mg/dL (65-110); Magnesium 1.7 mg/dL (1.6-2.3); Phosphorus 1.9 mg/dL (2.5-4.5); Potassium 3.1 mmol/L (3.4-5.0); Sodium 136 mmol/L (137-145)
[2022-11-17] MEDS: LEVOTHYROXINE SODIUM 112 MCG TABLET PO (06:23)
[2022-11-17 06:28] VITALS: BP 124/75; PULSE 68; RESP 16; TEMP 36.7; O2SAT 99
[2022-11-17] MEDS: INSULIN GLARGINE (*BKC) 100 UNITS/ML 30 UNITS SUB-Q (08:10)
[2022-11-17] MEDS: INSULIN ASPART (*BKC) 100 UNITS/ML SUB-Q ×4 (08:10→12:07)
[2022-11-17] MEDS: CHOLECALCIFEROL 1,000 UNITS TABLET 4000 UNITS PO (08:11)
[2022-11-17] MEDS: ASPIRIN 81 MG CHEWABLE TABLET PO (08:11)
[2022-11-17] MEDS: FAMOTIDINE 20 MG/2 ML VIAL IV PUSH (08:11)
[2022-11-17 08:26] LABS: Glucose Point of Care 206 mg/dl (65-105)
[2022-11-17] MEDS: ENOXAPARIN 40 MG/0.4 ML SYRINGE SUB-Q (08:31)
[2022-11-17 09:55] VITALS: PULSE 49; O2SAT 98
[2022-11-17 11:56] LABS: Glucose Point of Care 216 mg/dl (65-105)
--- NOTE | 2022-11-17 12:06 | PM.DS ---
DS: Admitting Diagnosis Discharge Date 11/17/2022 Admitting Diagnosis DKA DS: Discharge Diagnosis Discharge Diagnosis (1) Diabetic ketoacidosis: Qualifiers: Diabetes mellitus complication detail: without coma Diabetes mellitus type: type 2 Qualified Code(s): E11.10 - Type 2 diabetes mellitus with ketoacidosis without coma Code(s): E11.10 - Type 2 diabetes mellitus with ketoacidosis without coma Status: Acute (2) Lactic acidosis: Code(s): E87.20 - Acidosis, unspecified Status: Acute (3) Nodule of left lung: Code(s): R91.1 - Solitary pulmonary nodule Status: Acute (4) Hypothyroidism: Code(s): E03.9 - Hypothyroidism, unspecified Status: Acute DS: Summary Hospital Course Hospital Course: 62 oral female with type 2 diabetes hypertension hyperlipidemia presented for nausea vomiting and elevated blood sugar level.? She got a flu shot on Friday she and couple days later she started feeling unwell with sinus congestion sore throat subjective fever nausea vomiting he has not been able to hold her food down and getting progressively weak lightheaded and dizzy upon standing.? The last 2 days of blood sugar has continued to rise and was over 600 when she came in for evaluation.? She has been recently started on Ozempic in monitor lost 22 lb.? In the ER evaluation her heart rate was in 120s to 130s sinus tachycardia at WBC count of 23,000 carbon dioxide less than 5 creatinine 1.6 blood to was a 6 and 83 lactic acid of 7.6 with beta hydroxybutyrate of 9.37.? Chest x-ray showed possible 7 mm left pulmonary nodule.? CT chest was done which showed 1.7 x 1 cm nodular consolidation in the peripheral left upper lobe differential diagnosis include infectious process versus neoplasm. She was diagnosed with DKA and was started on insulin drip and IV resuscitation. DKA protocol was initiated.? Repeat lactic acid improved with IV hydration has normalized since then.?Metformin is on hold and has been started on empiric antibiotics.? Blood cultures remains negative.? Leukocytosis improved.? Lantus 30 units started. hemoglobin A1c came back at 9 Anion gap closed has been transition to long-acting insulin with sliding scale insulin.? 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 She has also been on Ozempic 0.5 mg weekly since past 6 months.? Off Farxiga due to UTI.? Does take metformin. will conintue jh at discahge with novolog. Hypothyroidism on Synthroid Hyperlipidemia on statin Code status full code DVT prophylaxis Lovenox. Time Spent with Patient Time attestation: Total time spent providing and/or coordinating discharge services: 35 mins Exam Narrative: General: Pleasant female in no acute distress HEENT:? Pupils equal and reactive, sclerae is clear, dry oral mucosa Neck:? Supple Respiratory:? Clear to auscultation bilaterally, no wheezing, adequate air entry Cardiac:? S1-S2 normal, sinus tachycardia Abdomen:? Soft, nontender, nondistended, normoactive bowel sounds Extremities:? Palpable pedal pulses, no edema Neuro:? Patient is awake, alert, oriented, nonfocal, able to answer questions appropriately and follows simple commands in all extremities Skin:? Warm and dry Psych:? Normal mentation and affect DS: Data Data Completed and Pending Labs on day of discharge: Labs from last 24 hours 11/17/22 11/17/22 11/17/22 11:52 08:04 04:51 WBC 6.5 RBC 3.65 L Hgb 11.5 L Hct 33.8 L MCV 92.6 MCH 31.5 MCHC 34.0 RDW 13.0 Plt Count 190 MPV 10.0 Immature Gran % (Auto) 0.3 Neut % (Auto) 65.9 Lymph % (Auto) 25.0 [place] % (Auto) 7.4 Eos % (Auto) 0.8 Baso % (Auto) 0.6 Lymph # (Auto) 1.63 [place] # (Auto) 0.5 Eos # (Auto) 0.1 Baso # (Auto) 0.0 Abs Immat Gran (auto) 0.02 Absolute Neuts (auto) 4.3 Absolute Nucleated RBC 0.0 Nucleated RBC
[2022-11-17] MEDS: POTASSIUM PHOS/SODIUM PHOS 250 MG TABLET PO (12:11)
[2022-11-17] MEDS: POTASSIUM CHLORIDE 20 MEQ ER TABLET 40 MEQ PO (12:11)
[2022-11-19 13:19] LABS: Pneumococcal Antigen Urine Not Detected (Not Detected)
[2022-11-19 14:37] LABS: Mycoplasma IgM Antibody Titer 51 U/mL (<770)
[2022-11-20 01:13] LABS: Legionella pneumophila Ag Ur Not Detected (Not Detected)
== END 2022-11-17 13:00 | disposition home or self-care (01) | DRG 638 ==
LOC: ANHED 07:51 → ANHICU 09:38 → ANH2MED 11-16 16:42
PROVIDERS: Internal Medicine; Physician Assistant; Admitting Provider Internal Medicine; Emergency Provider Preventive Medicine Aerospace Medicine; PCP Internal Medicine; Visit Provider Internal Medicine
DX: E11.10 Type 2 diabetes mellitus with ketoacidosis without coma (principal); N39.0 Urinary tract infection, site not specified; R91.1 Solitary pulmonary nodule; E03.9 Hypothyroidism, unspecified; I10 Essential (primary) hypertension; E78.5 Hyperlipidemia, unspecified; E86.0 Dehydration; Z20.822 Contact with and (suspected) exposure to COVID-19
CPT/HCPCS: 36415; 71045; 71260; 80048; 80053; 81001; 81025; 82010; 82803; 82948; 83036; 83605; 83690; 83735; 84100; 84145; 84439; 84443; 84480; 84484; 85025; 86140; 86738; 87040; 87449; 87636; 87899; 93005; 96365; 96366; 96367; 96375; 99285; A9270; G0378; J0456; J0696; J1650; J1815; J2405; J3480; J7030; J7060; J7120; Q9967